=== PATIENT | female | born 1985 | race Caucasian/White ===

== ENCOUNTER 2025-11-02 12:04 | Emergency (ER) | payer SELFPAY ==
[2025-11-02 12:08] VITALS: BP 144/92
--- NOTE | 2025-11-02 14:13 | ED.GENMED ---
History of Present Illness
General
Chief Complaint: Musculo-Skeletal Complaint
Time Seen by Provider: 11/02/25 13:25
History of Present Illness
History of Present Illness:
40-year-old female presents to the emergency department for evaluation of right shoulder and neck pain that has been ongoing for the past several days. Was treated with a 5-day course of prednisone by urgent care, 50 mg daily. Denies any trauma.
Has radiating pain to the right shoulder and hand feels the hand is weak although not dropping any objects at home. No chest pain or shortness of breath. No fevers or chills
Past History
Past History
ED Past Surgical History: None
Social History
Personal: Single
Review of Systems
Review of Systems
Allergies reviewed?: Yes
All Other Systems: ROS reviewed and negative except as documented in HPI and ROS
Phy Exam
Physical Exam
Physical Exam:
GEN: Well appearing, NAD, WDWN
HEENT: Oral mucosa moist, no scleral icterus
Cardiac: Regular rate
Lung: No respiratory distress, no tachypnea
MSK: No gross deformity or injuries. Cervical spine range of motion normal, no bony midline tenderness, tenderness elicited to the trapezius musculature on the right. Range of motion of the right shoulder is normal with 5 out of 5 strength, strong
right dorsalis pedis pulse
Skin: Good color, no pallor or jaundice, no rashes
Neuro: AO x3, moves all extremities freely
Psych: Calm, cooperative
Course
Vital Signs
Initial and Last Documented VS:
Initial Vital Signs
Temp Pulse Resp BP Pulse Ox
98.5 F 98 16 144/92 99
11/02/25 12:08 11/02/25 12:08 11/02/25 12:08 11/02/25 12:08 11/02/25 12:08
Last Documented Vital Signs
Temp Pulse Resp BP Pulse Ox
98.5 F 98 16 144/92 99
11/02/25 12:08 11/02/25 12:08 11/02/25 12:08 11/02/25 12:08 11/02/25 14:14
MDM/Problems Addressed
MDM/Problems Addressed:
Likely brachial plexopathy versus cervical disc disease, given that steroids have not provided substantial relief we will treat with NSAIDs and muscle relaxants. No indication for imaging given lack of trauma
*Pulse Oximetry
SaO2: 99
Oxygen Mode of Delivery: Room air
Patient hypoxic: no
*Critical Care Note
Total Time (30-74mins, 75-104mins- exclusive of procedures): Not Applicable
ED Attending Note
-
Portions of this chart may have been created with voice recognition software.� Occasional wrong word or��sound alike� substitutions may have occurred due to the inherent limitations of voice recognition software.
Discharge Plan
Departure
Patient Disposition: Home (Routine Discharge)
Date of Disposition: 11/02/25
Time of Disposition: 14:13
Patient with high blood pressure during this ER visit?: No
Discharge Problem:
Cervical disc disorder with radiculopathy
Instructions: Radiculopathy of the neck and back (including sciatica) (DC)
Prescriptions:
New
celecoxib 200 mg capsule
200 mg PO BID Qty: 20 0RF
methocarbamol 750 mg tablet
750 - 1,500 mg PO Q8H Qty: 20 0RF
No Action
No Meds [No Current Medications]
0
Referrals:
UNKNOWN - PT DOES,NOT KNOW [Family Provider]
Activity Restrictions/Additional Instructions:
Consider physical therapy/massage therapy
Follow up with your primary care provider
Interventions
Interventions:
*General Assessment Last Done: 11/02/25 14:20
*Neglect/Abuse Screening Last Done: 11/02/25 12:09
*ED COVID-19 Vaccine History Last Done: 11/02/25 14:21
*ED Influenza Vaccine History Last Done: 11/02/25 14:21
[facility] Fall Risk Assessment Tool Last Done: 11/02/25 14:20
*Risk Screen - Suicide (C-SSRS) Last Done: 11/02/25 12:09
*Nursing Disposition Last Done: 11/02/25 14:49
ED-Musculoskeletal Assessment Last Done: 11/02/25 14:20
Discharge Date and Time
Discharge Date/Time: 11/02/25 14:49
Print Language: SAMI
== END 2025-11-02 14:49 | disposition home or self-care (01) ==
LOC: EMR 12:04
PROVIDERS: EMERGENCY PHYSICIAN Emergency Medicine
DX: M50.10 Cervical disc disorder with radiculopathy, unspecified cervical region (principal); M25.511 Pain in right shoulder
CPT/HCPCS: 99283